=== PATIENT | female | born 1965 | race Caucasian/White ===

== ENCOUNTER 2020-06-12 15:34 | Outpatient (CLI) | payer MEDICARE, SELFPAY ==
[2020-06-12 16:21] LABS: Basophils Absolute Auto 0.1 K/mm3 (0.0-0.1); Basophils Percent Auto 0.8 % (0.2-1.2); Eosinophils Absolute Auto 0.2 K/mm3 (0-0.3); Eosinophils Percent Auto 2.5 % (0-4.4); Hematocrit 40.9 % (37.0-47.0); Hemoglobin 13.7 g/dL (12.0-15.0); Immature Granulocyte Absolute 0.03 K/mm3 (0.00-0.031); Immature Granulocyte Percent A 0.4 % (0-0.5); Lymphocytes Absolute Auto 1.95 K/mm3 (0.9-3.2); Lymphocytes Percent Auto 23.6 % (18.3-44.2); Mean Corpuscular HGB Conc 33.5 g/dl (32-36); Mean Corpuscular Hemoglobin 30.4 pg (26-34); Mean Corpuscular Volume 90.7 fl (80-100); Mean Platelet Volume 10.2 fl (7.4-10.4); Monocytes Absolute Auto 0.7 K/mm3 (0.1-0.6); Monocytes Percent Auto 7.9 % (2.6-8.5); Neutrophils Absolute Auto 5.4 K/mm3 (1.3-6.7); Neutrophils Percent Auto 64.8 % (45.5-73.1); Platelet Count Result 301 k/mm3 (150-375); Red Blood Count 4.51 M/mm3 (4.2-5.4); Red Cell Distribution Width 13.1 % (11.5-14.5); White Blood Count 8.3 K/mm3 (4.5-10.0)
[2020-06-12 16:25] LABS: Add Urine Microscopic? YES; Appearance Urine Clear (Clear); Bilirubin Urine Negative (Negative); Blood Urine Negative (Negative); Color Urine Amber (Yellow); Glucose Urine UA Negative (Negative); Ketones Urine Negative (Negative); Leukocyte Esterase Ur Negative LEU/UL (Negative); Nitrate Urine Positive (Negative); Protein Urine Negative (Negative); RBC Urine 0-2 /hpf (0-2); Specific Grav Ur 1.019 (1.001-1.035); Squamous Epithelial Cell Urine Many /hpf (Few); WBC Urine 0-3 /hpf
[2020-06-12 16:34] LABS: Alanine Aminotransferase 20 U/L (4-35); Albumin Level 4.5 g/dL (3.5-5.1); Alkaline Phosphatase 75 U/L (38-126); Aspartate Amino Transferase 22 U/L (14-36); Bilirubin,Total 0.3 mg/dL (0.2-1.3); Blood Urea Nitrogen 18 mg/dL (7-17); Calcium 9.3 mg/dL (8.4-10.2); Carbon Dioxide 24 mmol/L (22-30); Chloride 106 mmol/L (98-107); Estimated Glomerular Filt Rate > 60; Glucose 89 mg/dL (65-105); Lipase 126 U/L (23-300); Potassium 4.2 mmol/L (3.4-5.0); Sodium 139 mmol/L (137-145)
== END 2020-06-12 15:35 | disposition home or self-care (01) ==
PROVIDERS: Anesthesiology; PCP Registered Nurse; Visit Provider Student in an Organized Health Care Education/Training Program
DX: R10.11 Right upper quadrant pain (principal); R10.13 Epigastric pain
CPT/HCPCS: 36415; 80053; 81001; 83690; 85025

== ENCOUNTER → 2020-06-17 14:44 | Outpatient (CLI) | payer MEDICARE, SELFPAY ==
--- NOTE | ~2020-06-17 | MM_ITS ---
EXAMINATION: MM screening [facility] BI w roderick HISTORY: Screening TECHNIQUE: Craniocaudal and mediolateral oblique 3-D tomosynthesis images were obtained and synthetic 2-D images were generated. CAD analysis was submitted and interpreted. COMPARISON: Comparison to multiple prior studies sequentially, with oldest reviewed study dated 05/15. BREAST PARENCHYMAL COMPOSITION: There are scattered areas of fibroglandular density. FINDINGS: There is no evidence of suspicious mass, calcification, or architectural distortion to sugg est malignancy in either breast. There has been no suspicious interval change. IMPRESSION: 1. No mammographic evidence of malignancy. 2. Recommend routine screening mammography in one year. BI-RADS Category 2: Benign finding(s). Reviewed, dictated and finalized at location A.
== END ==
PROVIDERS: Visit Provider Registered Nurse
DX: Z12.31 Encounter for screening mammogram for malignant neoplasm of breast (principal)
CPT/HCPCS: 77063; 77067

== ENCOUNTER 2020-06-24 07:12 | Outpatient (CLI) | payer MEDICARE, SELFPAY ==
--- NOTE | ~2020-06-24 | US_ITS ---
EXAMINATION: US abdomen complete DATE: 06/24/2020 08:20 INDICATION: Abdominal pain TECHNIQUE: Multiple grayscale and Doppler ultrasound images of the abdomen were obtained. COMPARISON: None available FINDINGS: Bowel gas obscures visualization of the pancreas. The visualized portions of the pancreas a re unremarkable. The liver is normal with normal echogenicity and echotexture. No surface nodularity. Normal hepatopetal flow in the main portal vein. The gallbladder is normal with no abnormal wall thi ckening, pericholecystic fluid or stones. The normal common bile duct measures 3 mm. There was no son ographic Fiore sign. The visualized portions of the aorta and inferior vena cava are normal. The right kidney measures 9.0 x 3.9 x 4.7 cm. The left kidney measures 10.6 x 4.9 x 5.6 cm. The kidne ys demonstrate normal parenchymal echogenicity. There is no hydronephrosis. The spleen is normal in a ppearance and measures 10.2 cm. IMPRESSION: 1. No sonographic correlate for the patient's symptoms. Reviewed, dictated and finalized at location B.
== END 2020-06-24 07:13 | disposition home or self-care (01) ==
PROVIDERS: PCP Student in an Organized Health Care Education/Training Program; Visit Provider Student in an Organized Health Care Education/Training Program
DX: R10.11 Right upper quadrant pain (principal); R10.13 Epigastric pain
CPT/HCPCS: 76700

== ENCOUNTER 2020-10-09 15:01 | Outpatient (CLI) | payer MEDICARE, SELFPAY ==
--- NOTE | ~2020-10-09 | CT_ITS ---
EXAMINATION: CT abdomen pelvis wo con DATE: 10/09/2020 15:32 INDICATION: Right flank pain. Urinary frequency. TECHNIQUE: Computed tomography (CT) of the abdomen and pelvis was performed without intravenous contr ast. Automated exposure control and iterative reconstruction technique were employed. The dose-length product was 357.28 mGy-cm. COMPARISON: 06/12/2014 FINDINGS: Lung bases are clear. Heart size is normal. No pericardial or pleural effusion. Liver, gallbladder, s pleen, pancreas and bilateral adrenal glands are normal. Kidneys and ureters are normal with no uroli thiasis, hydroureteronephrosis or perinephric/ureteral stranding. Bladder, uterus and bilateral adnex a are normal. Bowels including the appendix are normal. No free intraperitoneal gas or fluid. No path ologically enlarged abdominal or pelvic lymphadenopathy. Tiny fat-containing umbilical hernia. L5-S1 anterior spinal fusion with interbody bone graft cages and anterior fixation device. IMPRESSION: 1. No urolithiasis or acute intra-abdominal/pelvic process. Reviewed, dictated and finalized at location . N CARPENTER
== END 2020-10-09 15:02 | disposition home or self-care (01) ==
LOC: ANHIMG 15:10
PROVIDERS: PCP Student in an Organized Health Care Education/Training Program; Visit Provider Registered Nurse
DX: R10.9 Unspecified abdominal pain (principal); Z87.442 Personal history of urinary calculi; R35.0 Frequency of micturition
CPT/HCPCS: 74176

== ENCOUNTER 2020-10-21 07:28 | Outpatient (CLI) | payer MEDICARE, SELFPAY ==
[2020-10-21 08:07] LABS: Basophils Absolute Auto 0.1 K/mm3 (0.0-0.1); Basophils Percent Auto 0.8 % (0.2-1.2); Eosinophils Absolute Auto 0.2 K/mm3 (0-0.3); Eosinophils Percent Auto 3.5 % (0-4.4); Hematocrit 37.4 % (37.0-47.0); Hemoglobin 12.7 g/dL (12.0-15.0); Immature Granulocyte Absolute 0.02 K/mm3 (0.00-0.031); Immature Granulocyte Percent A 0.3 % (0-0.5); Lymphocytes Absolute Auto 1.89 K/mm3 (0.9-3.2); Lymphocytes Percent Auto 31.9 % (18.3-44.2); Mean Corpuscular Hemoglobin 29.4 pg (26-34); Mean Corpuscular Volume 86.6 fl (80-100); Mean Platelet Volume 9.8 fl (7.4-10.4); Monocytes Absolute Auto 0.6 K/mm3 (0.1-0.6); Monocytes Percent Auto 9.3 % (2.6-8.5); Neutrophils Absolute Auto 3.2 K/mm3 (1.3-6.7); Neutrophils Percent Auto 54.2 % (45.5-73.1); Platelet Count Result 264 k/mm3 (150-375); Red Blood Count 4.32 M/mm3 (4.2-5.4); Red Cell Distribution Width 13.4 % (11.5-14.5); White Blood Count 5.9 K/mm3 (4.5-10.0)
[2020-10-21 08:20] LABS: Alanine Aminotransferase 19 U/L (4-35); Albumin Level 4.6 g/dL (3.5-5.1); Alkaline Phosphatase 72 U/L (38-126); Anion Gap 9 mmol/L (8-16); Aspartate Amino Transferase 23 U/L (14-36); Bilirubin,Total 0.4 mg/dL (0.2-1.3); Blood Urea Nitrogen 21 mg/dL (7-17); Calcium 9.4 mg/dL (8.4-10.2); Carbon Dioxide 27 mmol/L (22-30); Chloride 106 mmol/L (98-107); Cholesterol 175 mg/dL (0-200); Estimated Glomerular Filt Rate > 60; Glucose 92 mg/dL (65-105); HDL Direct 44 mg/dL; Potassium 3.9 mmol/L (3.4-5.0); Sodium 142 mmol/L (137-145); Triglycerides 221 mg/dL (<150); Uric Acid 3.6 mg/dL (2.5-7.5)
[2020-10-21 08:25] LABS: Add Urine Microscopic? YES; Appearance Urine Cloudy (Clear); Bilirubin Urine Negative (Negative); Blood Urine Negative (Negative); Color Urine Yellow (Yellow); Glucose Urine UA Negative (Negative); Ketones Urine Negative (Negative); Leukocyte Esterase Ur Negative LEU/UL (Negative); Mucus Urine Few /lpf; Nitrate Urine Negative (Negative); Protein Urine Negative (Negative); RBC Urine 0-2 /hpf (0-2); Specific Grav Ur 1.017 (1.001-1.035); Squamous Epithelial Cell Urine Many /hpf (Few); Urobilinogen Urine Negative mg/dL (<2.0); WBC Urine 0-3 /hpf
[2020-10-21 08:31] LABS: LDL Cholesterol Direct 102 mg/dL
[2020-10-21 08:56] LABS: Vitamin D 25 Hydroxy 58.7 ng/mL
== END 2020-10-21 07:29 | disposition home or self-care (01) ==
PROVIDERS: PCP Registered Nurse; Visit Provider Registered Nurse
DX: E78.2 Mixed hyperlipidemia (principal); Z68.30 Body mass index [BMI] 30.0-30.9, adult; F33.42 Major depressive disorder, recurrent, in full remission; E55.9 Vitamin D deficiency, unspecified
CPT/HCPCS: 36415; 80053; 80061; 81001; 82306; 84443; 84550; 85025

== ENCOUNTER 2021-03-30 18:16 | Emergency (ER) | payer MEDICARE, SELFPAY ==
--- NOTE | 2021-03-30 18:22 | ED.SKABFB ---
HPI - Skin/Abscess/Foreign Bdy General Chief complaint: Skin/Abscess/Foreign Body Stated complaint: spider bite Time Seen by Provider: 03/30/21 18:32 Source: patient and RN notes reviewed Mode of arrival: ambulatory Limitations: no limitations History of Present Illness HPI narrative: 55-year-old female presents with concern for an abscess. Reports an area of redness, tenderness under her right arm for which she saw her primary care doctor. Reports her primary care doctor put her on a course of antibiotics as well as an antibiotic injection. Reports she saw her primary care doctor today who dale a [place] around the abscess and said if the redness exceeded the current area she should be seen at urgent care. Reports the redness continued to spread and she noticed a small amount of drainage. She denies fever, malaise, body aches. MD complaint: abscess/boil Related Data Home Medications Medication Instructions Recorded Confirmed atorvastatin 10 mg PO DAILY 03/30/21 03/30/21 bupropion HCl 150 mg PO BID 03/30/21 03/30/21 estradiol 1 mg PO DAILY 03/30/21 03/30/21 phentermine 37.5 mg PO DAILY 03/30/21 03/30/21 progesterone micronized 100 mg PO DAILY 03/30/21 03/30/21 sulfamethoxazole-trimethoprim 1 tablet PO Q12H 03/30/21 03/30/21 Allergies Allergy/AdvReac Type Severity Reaction Status Date / Time hydrocodone Allergy Unknown ITCHING Verified 03/30/21 18:52 Review of Systems Review of Systems: Narrative: CONSTITUTIONAL: Denies malaise, chills, sweats, or fever. SKIN: Reports an abscess under her right arm MUSCULOSKELETAL: Denies musculoskeletal pain NEUROLOGIC: Denies numbness, weakness All systems reviewed & are unremarkable except as noted in HPI and below PMFSH Past Medical History Medical History (Updated 03/30/21 @ 18:44 by Margie Baxter NP) Chronic neck pain GERD (gastroesophageal reflux disease) Surgical History Surgical History (System 05/22/20 @ 12:35 by Yuly Yoo) History of orthopedic surgery Family History Family History (System 05/22/20 @ 12:35 by Yuly Yoo) Sibling Family history of diabetes mellitus in first degree relative Mother Family history of heart disease in male family member before age 55 Other Family history of malignant neoplasm Social History Social History (System 06/26/20 @ 12:35 by Yuly Yoo) Smoking status: Current every day smoker Alcohol intake: current Comments At time of signature, agree with nursing past medical, surgical, social and family history. There is no relevant family history pertinent to the presenting complaint Exam Narrative: Exam Narrative: GENERAL: Well-appearing, well-nourished, and in no acute distress. HEAD: Normocephalic, atraumatic. EYES: PERRLA, conjunctivae clear, and EOMI. ENT: Mucous membranes moist. Oropharynx without edema, erythema or lesions. NECK: Supple. No lymphadenopathy CHEST: Clear to auscultation. No respiratory distress HEART: Regular rate and rhythm. SKIN: Warm, dry. 8 cm x 6 cm area of erythema, induration, warmth with small amount of tracking medially. Central fluctuation noted with small amount of purulent drainage. NEURO: Alert and oriented x3. PSYCH: Normal mood and affect Course Course Emergency Course: Patient is aware of diagnosis, understands and agrees to treatment plan. Anticipatory guidance given. Patient agrees to follow-up as directed and is aware of reasons to seek care at the emergency department. Portions of this record may have been created with voice recognition software Vital Signs Vital signs: Vital Signs Temperature 98.7 F 03/30/21 18:28 Pulse Rate 96 03/30/21 18:28 Respiratory Rate 16 03/30/21 18:28 Blood Pressure 133/60 03/30/21 18:28 Pulse Oximetry 100 03/30/21 18:28 Temperature 98.7 F 03/30/21 18:28 Pulse Rate 96 03/30/21 18:28 Respiratory Rate 16 03/30/21 18:28 Blood Pressure 133/60 03/30/21 18:28 Pulse Oximetry 10
[2021-03-30 18:28] VITALS: BP 133/60; PULSE 96; RESP 16; TEMP 37.1; O2SAT 100
== END 2021-03-30 19:06 | disposition home or self-care (01) ==
PROVIDERS: Emergency Provider Nurse Practitioner; PCP Registered Nurse
DX: L02.413 Cutaneous abscess of right upper limb (principal); K21.9 Gastro-esophageal reflux disease without esophagitis; F17.200 Nicotine dependence, unspecified, uncomplicated
CPT/HCPCS: 10060; 99213; G0463

== ENCOUNTER → 2021-06-24 07:20 | Outpatient (CLI) | payer MEDICARE, SELFPAY ==
--- NOTE | ~2021-06-24 | MM_ITS ---
EXAMINATION: MM screening [facility] BI w roderick HISTORY: Screening mammogram TECHNIQUE: Craniocaudal and mediolateral oblique 3-D tomosynthesis images were obtained and synthetic 2-D images were generated. CAD analysis was submitted and interpreted. COMPARISON: 06/17/2020, 3 04/20/2019, 12/22/1999 8:15 bilateral digital mammogram examinations BREAST PARENCHYMAL COMPOSITION: There are scattered areas of fibroglandular density. FINDINGS: Asymmetric density is noted in the anterior outer right breast on CC projection. Diagnostic right mammogram and right breast ultrasound examination are recommended, Otherwise there is no evidence of suspicious mass, calcification, or architectural distortion to sugg est malignancy in either breast. There has been no other suspicious interval change. IMPRESSION: 1. Asymmetric density and anterior outer right breast on CC projection 2. Diagnostic right mammogram and right breast ultrasound examination are recommended BI-RADS Category 0: Incomplete: Needs additional imaging evaluation. Reviewed, dictated and finalized at location A. IMPRESSION: 1. Asymmetric density and anterior outer right breast on CC projection 2. Diagnostic right mammogram and right breast ultrasound examination are recom mended BI-RADS Category 0: Incomplete: Needs additional imaging evaluation.
== END ==
PROVIDERS: PCP Registered Nurse; Visit Provider Obstetrics & Gynecology
DX: Z12.31 Encounter for screening mammogram for malignant neoplasm of breast (principal); R92.8 Other abnormal and inconclusive findings on diagnostic imaging of breast
CPT/HCPCS: 77063; 77067

== ENCOUNTER → 2021-07-22 08:54 | Outpatient (CLI) | payer MEDICARE, SELFPAY ==
--- NOTE | ~2021-07-22 | MMUS_ITS ---
EXAMINATION: MM diagnostic [facility] RT w roderick, US breast RT limited HISTORY: Right breast asymmetry on screening mammogram TECHNIQUE: Additional 3-D tomosynthesis images of the right breast were performed and synthetic 2-D i mages were generated. CAD analysis was submitted and interpreted. High resolution limited right breas t ultrasound was performed. COMPARISON: 06/24/2021, 06/17/2020, 02/13/2019, 09/26/2014 BREAST PARENCHYMAL COMPOSITION: There are scattered areas of fibroglandular density. FINDINGS: MAMMOGRAPHIC FINDINGS: There is a return to baseline fibroglandular appearance with spot compression of the breast in th e area questioned on screening mammogram. There is an 8 mm oval, obscured, low density subareolar mas s in the slightly outer breast. ULTRASOUND: There is a 10 mm x 4 mm cyst at the 10:00 location 3 cm from the nipple. A 3 mm hypoechoic mass at th e 10:00 location 7.5 cm from the nipple has a similar appearance to thousand 14 ultrasound comparison . A mass with sonographic features of an intramammary lymph node is seen at the 10:00 location 7 cm f rom the nipple. There is a dilated subareolar ducts at the 10:00 location without identifiable intral uminal mass. IMPRESSION: 1. No mammographic or sonographic evidence of malignancy. 2. Recommend routine screening mammography in one year. BI-RADS Category 2: Benign finding(s). Reviewed, dictated and finalized at location A. IMPRESSION: 1. No mammographic or sonographic evidence of malignancy. 2. Recommend routine screening mammography in one year. BI-RADS Category 2: Benign finding(s).
== END ==
PROVIDERS: PCP Registered Nurse; Visit Provider Obstetrics & Gynecology
DX: R92.8 Other abnormal and inconclusive findings on diagnostic imaging of breast (principal)
CPT/HCPCS: 76642; 77061; 77065; G0279

== ENCOUNTER 2022-02-04 07:38 | Outpatient (CLI) | payer MEDICARE, SELFPAY ==
--- NOTE | ~2022-02-04 | US_ITS ---
EXAMINATION: US right upper quadrant EXAM DATE: 02/04/2022 08:13 INDICATION: Abdominal pain TECHNIQUE: Multiple grayscale and Doppler images of the abdomen right upper quadrant were obtained (b y a technologist who performed the scan) and subsequently reviewed. Comparison is made to prior exami nation from 06/24/2020. FINDINGS: The pancreatic head and body are normal in appearance. The pancreatic tail is not visualized. The l iver has normal echogenicity and contour. There are no focal liver lesions identified. There is no evidence of intrahepatic biliary duct dilation. Portal venous flow was seen in the hepatopedal, nor mal direction and has normal Doppler waveform. No right-sided hydronephrosis. Common bile duct measures 3 mm, which is normal. The gallbladder wall is normal in thickness, with ex pected amount of distention. No sonographic evidence of pericholecystic fluid. There is no cholelit hiases. Technologist performing exam reports patient did not demonstrate sonographic Fiore's sign. Please note that this sign is less reliable in patients who have received pain medication. IMPRESSION: 1. Unremarkable abdominal ultrasound exam. Reviewed, dictated and finalized at location A. CONSULTANT
== END 2022-02-04 07:39 ==
PROVIDERS: PCP Registered Nurse; Visit Provider Nurse Practitioner Family
DX: R10.11 Right upper quadrant pain (principal); R11.2 Nausea with vomiting, unspecified
CPT/HCPCS: 76705

== ENCOUNTER → 2022-07-19 13:49 | Outpatient (CLI) | payer MEDICARE, SELFPAY ==
--- NOTE | ~2022-07-19 | MM_ITS ---
EXAMINATION: MM screening [facility] BI w roderick HISTORY: Screening TECHNIQUE: Craniocaudal and mediolateral oblique 3-D tomosynthesis images were obtained and synthetic 2-D images were generated. CAD analysis was submitted and interpreted. COMPARISON: Comparison to multiple prior studies sequentially, with oldest reviewed study dated 08/29. BREAST PARENCHYMAL COMPOSITION: There are scattered areas of fibroglandular density. FINDINGS: There is no evidence of suspicious mass, calcification, or architectural distortion to sugg est malignancy in either breast. There has been no suspicious interval change. IMPRESSION: 1. No mammographic evidence of malignancy. 2. Recommend routine screening mammography in one year. BI-RADS Category 1: Negative Reviewed, dictated and finalized at location A.
== END ==
PROVIDERS: PCP Registered Nurse; Visit Provider Obstetrics & Gynecology
DX: Z12.31 Encounter for screening mammogram for malignant neoplasm of breast (principal)
CPT/HCPCS: 77063; 77067

== ENCOUNTER → 2023-08-21 12:16 | Outpatient (CLI) | payer MEDICARE, SELFPAY ==
--- NOTE | ~2023-08-21 | MM_ITS ---
EXAMINATION: MM screening [facility] BI w roderick HISTORY: Screening mammogram TECHNIQUE: Craniocaudal and mediolateral oblique 3-D tomosynthesis images were obtained and synthetic 2-D images were generated. CAD analysis was submitted and interpreted. COMPARISON: 07/19/2022, 07/22/2021 diagnostic right mammogram and limited right breast ultrasound exami nation 06/04/2021 bilateral screening mammogram BREAST PARENCHYMAL COMPOSITION: There are scattered areas of fibroglandular density. FINDINGS: Benign-appearing posterior upper outer quadrant right intramammary lymph node. Occasional b enign calcifications. There is no evidence of suspicious mass, calcification, or architectural distor tion to suggest malignancy in either breast. There has been no suspicious interval change. IMPRESSION: 1. No mammographic evidence of malignancy. 2. Recommend routine screening mammography in one year. BI-RADS Category 2: Benign finding(s). Reviewed, dictated and finalized at location A.
== END ==
PROVIDERS: PCP Obstetrics & Gynecology; Visit Provider Obstetrics & Gynecology
DX: Z12.31 Encounter for screening mammogram for malignant neoplasm of breast (principal)
CPT/HCPCS: 77063; 77067

== ENCOUNTER 2023-09-22 07:13 | Outpatient (CLI) | payer MEDICARE, SELFPAY ==
[2023-09-22 07:36] LABS: Basophils Percent Auto 0.2 % (0.2-1.2); Eosinophils Percent Auto 0.1 % (0-4.4); Hematocrit 41.5 % (37.0-47.0); Hemoglobin 13.4 g/dL (12.0-15.0); Immature Granulocyte Absolute 0.13 K/mm3 (0.00-0.031); Immature Granulocyte Percent A 0.8 % (0-0.5); Lymphocytes Absolute Auto 2.39 K/mm3 (0.9-3.2); Lymphocytes Percent Auto 14.9 % (18.3-44.2); Mean Corpuscular HGB Conc 32.3 g/dl (32-36); Mean Corpuscular Hemoglobin 28.5 pg (26-34); Mean Corpuscular Volume 88.1 fl (80-100); Mean Platelet Volume 9.9 fl (7.4-10.4); Monocytes Absolute Auto 0.8 K/mm3 (0.1-0.6); Monocytes Percent Auto 4.9 % (2.6-8.5); Neutrophils Absolute Auto 12.7 K/mm3 (1.3-6.7); Neutrophils Percent Auto 79.1 % (45.5-73.1); Platelet Count Result 359 k/mm3 (150-375); Red Blood Count 4.71 M/mm3 (4.2-5.4); Red Cell Distribution Width 13.7 % (11.5-14.5)
[2023-09-22 07:44] LABS: Alanine Aminotransferase 23 U/L (6-35); Albumin Level 4.7 g/dL (3.5-5.1); Alkaline Phosphatase 73 U/L (38-126); Anion Gap 7 mmol/L (8-16); Aspartate Amino Transferase 21 U/L (14-36); Bilirubin,Total 0.4 mg/dL (0.2-1.3); Blood Urea Nitrogen 20 mg/dL (7-17); Calcium 9.4 mg/dL (8.4-10.2); Carbon Dioxide 26 mmol/L (22-30); Chloride 107 mmol/L (98-107); Cholesterol 230 mg/dL (0-200); Estimated Glomerular Filt Rate > 60; Glucose 95 mg/dL (65-110); HDL Direct 53 mg/dL; Potassium 4.1 mmol/L (3.4-5.0); Sodium 140 mmol/L (137-145); Triglycerides 273 mg/dL (<150)
[2023-09-22 07:55] LABS: LDL Cholesterol Direct 123 mg/dL
[2023-09-22 09:27] LABS: Vitamin D 25 Hydroxy 71.4 ng/mL
[2023-09-22 10:10] LABS: Hemoglobin A1C 5.2 % (<5.7)
[2023-09-22 11:07] LABS: Total Triiodothyronine (T3) 1.03 NG/ML (0.97-1.69)
[2023-09-25 15:16] LABS: Insulin Level Total 21.5 uIU/mL (<=18.4)
== END 2023-09-22 07:14 | disposition home or self-care (01) ==
LOC: ANHLAB 07:15
PROVIDERS: PCP Registered Nurse; Visit Provider Family Medicine
DX: E66.09 Other obesity due to excess calories (principal); Z68.31 Body mass index [BMI] 31.0-31.9, adult; R79.9 Abnormal finding of blood chemistry, unspecified; E78.2 Mixed hyperlipidemia; E55.9 Vitamin D deficiency, unspecified
CPT/HCPCS: 36415; 80053; 80061; 82306; 83036; 83525; 84439; 84443; 84480; 85025

== ENCOUNTER 2024-08-23 09:50 | Outpatient (CLI) | payer MEDICARE, SELFPAY ==
--- NOTE | ~2024-08-23 | MM_ITS ---
EXAMINATION: MM screening [facility] w roderick HISTORY: Screening TECHNIQUE: Craniocaudal and mediolateral oblique 3-D tomosynthesis images were obtained and synthetic 2-D images were generated. CAD analysis was submitted and interpreted. COMPARISON: Comparison to multiple prior studies sequentially, with oldest reviewed study dated 02/13. BREAST PARENCHYMAL COMPOSITION: Not dense: There are scattered areas of fibroglandular density. FINDINGS: There are developing asymmetries in the upper outer quadrant of the left breast. The right breast is stable without evidence for malignancy. IMPRESSION: 1. Developing left breast asymmetries. 2. Additional mammographic views and possible breast ultrasound are recommended. BI-RADS Category 0: Incomplete: Needs additional imaging evaluation. Reviewed, dictated and finalized at location B. IMPRESSION: 1. Developing left breast asymmetries. 2. Additional mammographic views and possible breast ultrasound are recommended . BI-RADS Category 0: Incomplete: Needs additional imaging evaluation.
== END 2024-08-23 09:51 | disposition home or self-care (01) ==
LOC: MICIMG 09:51
PROVIDERS: PCP Registered Nurse; Visit Provider Obstetrics & Gynecology
DX: Z12.31 Encounter for screening mammogram for malignant neoplasm of breast (principal); R92.8 Other abnormal and inconclusive findings on diagnostic imaging of breast
CPT/HCPCS: 77063; 77067

== ENCOUNTER 2024-09-17 08:49 | Outpatient (CLI) | payer MEDICARE, SELFPAY ==
--- NOTE | ~2024-09-17 | MMUS_ITS ---
EXAMINATION: MM diagnostic [facility] LT w roderick, US breast LT limited HISTORY: Follow-up left breast asymmetry TECHNIQUE: Additional 3-D tomosynthesis images of the left breast were performed and synthetic 2-D im ages were generated. CAD analysis was submitted and interpreted. High resolution Limited left breast ultrasound was performed. COMPARISON: Comparison to multiple prior studies sequentially, with oldest reviewed study dated 06/17. BREAST PARENCHYMAL COMPOSITION: Not dense: There are scattered areas of fibroglandular density. FINDINGS: MAMMOGRAPHIC FINDINGS: Left breast asymmetries are less apparent with spot compression views, likely superimposed fibrogland ular tissue. No discrete mass identified. There are benign left breast calcifications. ULTRASOUND: Limited left breast ultrasound: At 2:00, 8 cm from the nipple there is an oval hypoechoic 1 cm mass w ith echogenic hilum, likely benign intramammary lymph node. No internal vascularity or significant po sterior features. IMPRESSION: 1. Probable benign 1 cm intramammary lymph node of the left breast at 2:00, 8 cm from the nipple. 2. Recommend 6 month follow-up Limited left breast ultrasound BI-RADS category 3, probably benign findings. Reviewed, dictated and finalized at location B. IMPRESSION: 1. Probable benign 1 cm intramammary lymph node of the left breast at 2:00, 8 c m from the nipple. 2. Recommend 6 month follow-up Limited left breast ultrasound BI-RADS category 3, probably benign findings.
== END 2024-09-17 08:50 | disposition home or self-care (01) ==
PROVIDERS: PCP Registered Nurse; Visit Provider Obstetrics & Gynecology
DX: R92.2 Inconclusive mammogram (principal); R92.8 Other abnormal and inconclusive findings on diagnostic imaging of breast
CPT/HCPCS: 76642; 77061; 77065; G0279

== ENCOUNTER 2025-06-13 08:13 | Outpatient (CLI) | payer MEDICARE, SELFPAY ==
--- OUTSIDE RECORDS SUMMARY | 2025-06-13 08:22 | XMS_ITS | Patient Health Record ---
Author Organization [facility] Address [address] [place] [address] [address] [place] [address] Care Team Providers Care Manager Radio Name Role Phone Oleg Corona Unavailable [phone] Rosie Bray Unavailable Unavailable Allergies Allergen (clinical drug ingredient) Drug/Non Drug Allergy documented on EMR Reaction Allergy Type Onset Date Status hydrocodone hydrocodone (uncoded) Unknown Allergy Active Reason For Referral No Information Medications Medication SIG (Take, Route, Fr equency, Duration) Notes Start Date End Date Status PriLOSEC OTC 20 MG 1 tablet Orally Once a day; Duration: 30 day(s) Active Toprol XL 25 MG 1 tablet Orally Once a day; Duration: 30 day(s) Active Magnesium 200 MG 2 tablets with a lizette l Orally Once a day; Duration: 30 day(s) Active Zanaflex 4 MG 1 tablet as needed O rally Three times a day; Duration: 14 days 02/26/2020 A ctive Progesterone 100 MG 1 vaginal _insert Va ginal Twice a day; Duration: 30 day(s) Activ e Maxalt 10 MG 1 tablet as needed o ne time Orally Once a day; Duration: 1 day(s) Active Estrace 1 MG 1 tablet Orally Ashwin y for Three Weeks, 1 Week off; Duration: 30 day(s) Active Wellbutrin SR 150 MG 1 tablet in the mor lata Orally Once a day; Duration: 30 day(s) Active Lipitor 20 MG 1 tablet Orally Once a day; Duration: 30 day(s) Active Elavil 100mg 1 pill PO daily A ctive Problems Problem Type SNOMED Code ICD Code Onset Dates Problem Status W/U Status Risk Notes Problem Refractory migraine with aura (282593517) Migraine with aura, intractable, without status migrainosus (G43.119) Active confirmed Problem Meralgia paresthetica (60327380) Meralgia paresthetica, right lower limb (G57.11) Active confirmed Problem Cervical spondylosis without myelopathy (139624857) Spondylosis without myelopathy or radiculopathy, cervical region (M47.812) Active confirmed Plan Of Treatment Pending Test Test Name Order Date MRI : Cervical Spine w/o Contrast 2018 MRI : Cervical Spine w/o Contrast 2019 CT Scan : Cervical spine w/o contrast Insurance Providers Payer Name Payer Address Payer Phone Subscriber Number Group Number Insured Name Patient Relationship to Insured Coverage Start Date Coverage End Date [employer] [address] [address] [place] [address] [phone] [id number] Stacia Christy Self - patient is the insured Medical (General) History Medical History History ICD Code carpal tunnel (L) wrist HYTN Renal disorder stomach ulcers Surgical History Surgery Date(Month/Year)
--- OUTSIDE RECORDS SUMMARY | 2025-06-13 08:22 | XMS_ITS | Clinical Summary ---
Author Organization [facility] Address [address] [place] [address] Care Team Providers Care Cushion Filler Name Role Phone Yoli Melendez DRAWING OPERATOR-ENVIRONMENTAL SERVICES FLOOR TECH Primary Care Provider Jason Rodriguez MD Unavailable [phone] Source Comments [facility],non-owned Affiliates and Associated Physician Practices is amultiple site organization consisting of ambulatory clinics and hospital sitesin [place], [place], [place] and [place]. This disclosure is being madepursuant to the Care Everywhere program and may not contain all information available regarding this patient. Last updated 18.[facility] Allergies Active Allergy Reactions Criticality Noted Date Comments Hydrocodone Itching Low 07/24/2017 Shellfish Allergy Itching Low 02/06/2018 Red bumps, Red bumps Medications * Be aware that medications may not be up to date on this document. Alwaysverify current medications with the patient. Multiple Vitamins-Minera ls (ALIVE WOMENS ENERGY PO) Take by mouth once daily Active estradiol (ESTRACE) 1 MG tablet Take 1 (one) tablet by mouth once daily Active magnesium 250 MG tablet Take 1 tablet by mouth once daily 06/18/2019 Active atorvastatin (LIPITOR) 10 MG tablet Take one tablet daily 01/18/2022 Active lisinopril (PRINIVIL; ZESTRIL) 10 MG tablet Take one tablet once daily 02/18/2022 Active omeprazole (PRILOSEC) 40 MG capsule TAKE 1 CAPSULE(40 MG) BY MOUTH DAILY 03/10/2022 Active ibuprofen (Motrin) 200 MG tablet Take by mouth every 6 hours as needed for Pain Active SUMAtriptan (Imitrex) 100 MG tablet TAKE 1 TABLET BY MOUTH DAILY NEEDED. MAY REPEAT 1 TIME FOR MIGRAINE. NO MORE THAN 2 DOSES IN 24 HOURS 9 tablet 02/22/2023 Active Progesterone 100 MG capsule Take 1 (one) capsule by mouth once daily 03/17/2023 Active Active Problems Problem Noted Date Diagnosed Date Carpal tunnel syndrome of left wrist 06/18/2018 H/O arthroplasty 06/18/2018 Ulcer of the stomach and intestine Renal disorder Overview (07/31/2019): urban stones but passed 1 on own 2007 Migraine Hyperlipidemia HTN (hypertension) Chronic pain Overview (07/31/2019): back and right leg left shoulder neck Cataract Arthritis Cervical spondylosis without myelopathy Resolved Problems Problem Noted Date Diagnosed Date Resolved Date Pseudarthrosis following spinal fusion 10/11/2018 01/16/2020 Surgery follow-up examination 06/18/2018 06/18/2018 Radiculopathy of cervical region 02/16/2018 03/31/2018 Family History Medical History Relation Name Comments Other Brother Diabetes High Cholesterol Father CAD (Coronary Artery Disease) Mother Heart attack/failure Cancer - Other Mother lung Relation Name Status Comments Brother Alive Father Alive Mother Alive Social History Tobacco Use Types Packs/Day Years Used Date Smoking Tobacco: Former Cigarettes Q uit: 11/27/2017 Smokeless Tobacco: Never Tobacco Cessation:Counseling Given: No Alcohol Use Standard Drinks/Week Comments Yes 0 (1 standard drink = 0.6 oz pur e alcohol) 6 drinks a week Comments No Sex and Gender Information Value Date Recorded Sex Assigned at Not on file Legal Sex Female 5:18 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 Gender Identity Not on file Sexual Orientation Not on file Occupation Industry Job Start Date Job End Date disabled Not on file Not on file Not on file Last Filed Vital Signs Vital Sign Reading Time Taken Comments Blood Pressure 139/85 01/09/2023 1:01 PM FRAME SAMPLE AND 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 Pulse 75 01/09/2023 1:01 PM FRAME SAMPLE AND 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 Temperature 36.5 C (97.7 F) 01/09/2023 11:44 AM FRAME SAMPLE AND 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 Respiratory Rate 16 01/09/2023 1:01 PM FRAME SAMPLE AND 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 Oxygen Saturation 98% 01/09/2023 1:01 PM FRAME SAMPLE AND 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 Inhaled Oxygen Concentration - - Weight 86.2 kg (190 lb) 01/01/2021 8:52 AM FRAME SAMPLE AND 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 Height 170.2 cm (5' 7) 01/01/2021 8:52 AM FRAME SAMPLE AND 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 Body Mass Index 29.76 01/01/2021 8:52 AM FRAME SAMPLE AND 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 Plan of Treatment Health Maintenance Due Date Last Done Comments COLOGUARD (AGES 45-75) - COL ON CA SCREENING 1965 CT COLONOGRAPHY - COLON CA SCREENING 1965 FIT - COLON CA SCREENING 1965 FLEX SIG - COLON CA SCREENING 1965 MAMMOGRAM 1965 HIV SCREENING 1980 HEPATITIS C SCREENING 07/29/1983 DTAP/TDAP/TD VACCINES (1 - Tdap) 1984 HEPATITIS B VACCINE (1 of 3 - 19+ 3-dose series) 1984 PNEUMOCOCCAL VACCINE 50+ (1 of 1 - PCV) 2015 ZOSTER VACCINE (1 of 2) 2015 COVID-19 VACCINE (1 - 2023-2 5 season) 2024 DEPRESSION SCREENING 11/27/2024 MEDICARE AWV CALENDAR YEAR 2024 PAP SMEAR 03/07/2025 03/07/2022, 03/07/2022 INFLUENZA VACCINE (#1) 2025 COLON MONITORING 04/05/2033 04/05/2023 COLONOSCOPY - COLON CA SCREENING 04/05/2033 04/05/2023 Colorectal Cancer Screening 04/05/2033 HIB VACCINE Aged Out No longer eligi ble based on patient's age to complete this topic HPV VACCINE Aged Out No longer eligi ble based on patient's age to complete this topic MENINGOCOCCAL (Group B) VACCINE SHARED DECISION-MAKING Aged Out No longer eligible based on patient's age to complete this topic MENINGOCOCCAL GROUPS A/C/Y/W VACCINE Aged Out No longer eligible b ased on patient's age to complete this topic Insurance MEDICARE MEDICAID - OUT OF STATE [facility] MANAGED MEDICARE ADV [facility] MANAGED MEDICARE ADV Care Teams Cushion Filler Relationship Specialty Start Date End Date Yoli Melendez APRN-JESIKA [facility] [place] [address] PCP - General Nurse Practitioner 06/18/19 Jason Rodriguez MD [address] [place] [address] Physician Neurology 06/01/23
--- OUTSIDE RECORDS SUMMARY | 2025-06-13 08:22 | XMS_ITS ---
Author Organization [facility] [place] ([address]) Address [address] [place] [address] Care Team Providers Care Snowmaker Name Role Phone Yoli Melendez Primary Care Provider UnavailDr. Jason Parker Unavailable [phone] [employer], Provider Unavailable Unavailab le Allergies Allergen (clinical drug ingredient) Drug/Non Drug Allergy documented on EMR Reaction Allergy Type Onset Date Status hydrocodone HYDROcodone Unknown Drug Allergy Act rey REASON FOR VISIT Multum To Medispan Conversion Encounter Medications Medication SIG (Take, Route, Frequency, Duration) Notes Start Date End Date Status Amoxicillin 500 MG 1 cap(s) orally 3 times a day; Duration: 10 day(s) Not-Taking Magnesium ADDWITHOUTSIG *Please review and pick correct strength-formulat ion from Medispan options. If intended option is not shown, discontinue and re-order from Quick Search* 06/18/2019 Active Progesterone 100 MG 2 cap(s) orally once a day (at bedtime); Duration: 12 day(s) Active Meloxicam 15 MG 1 tab(s) orally once a day; Duration: 30 day(s) Active Atorvastatin Calcium 10 MG 1 tab(s) orally once a day; Duration: 30 day(s) Active Estradiol 1 MG 1 tab(s) orally once a day; Duration: 30 day(s) Unknown SUMAtriptan Succinate 100 MG 1 tab(s) orally once; Duration: 30 days Active Encounters Encounter Location Date Provider Diagnosis [address] [address] 05/11/2024 Provider Nilo Chronic migraine without aura, not intractable, without status migrainosus G43.709 Assessments Encounter Date Diagnosis (ICD Code) Assessment Notes Treatment Notes Treatment Clinical Notes Section Notes 05/11/2024 Chronic migraine without aura, not intractable, without status migrainosus (ICD-10 - G43.709) Plan Of Treatment Medication Medication Name Sig Start Date Stop Date Notes SUMAtriptan Succinate 100 MG 1 tab(s) or ally once; Duration: 30 days Progress Notes * Jaime CHRISTYOB:1965 (59 yo F)Acc No.[id number]:05/11/2024 Patient: Stacia MILLARD Provider: Andra Simpson :1965 A ge:58 Y S ex:Female Date:05/11/2024 Address:[address] [place], [place] [id number] Pcp:Yoli Melendez Subjective: * Chief Complaints: * 1 . Multum To Medispan Conversion Encounter. * Medical History: * Medications: T aking Atorvastatin Calcium 10 MG Tablet 1 tab(s) orally once a day , Taking Meloxicam 15 MG Tablet 1 tab(s) orally once a day , Taking Progesterone 100 MG Capsule 2 cap(s) orally once a day (at bedtime) , Taking Magnesium ADDWITHOUTSIG , Notes to Pharmacist: *Please review and pick correct [facility]. If intended option is not shown, discontinue and re-order from Quick Search*, Not-Taking/PRN Amoxicillin 500 MG Capsule 1 cap(s) orally 3 times a day , Unknown Estradiol 1 MG Tablet 1 tab(s) orally once a day * Allergies: H YDROcodone. Objective: * Vitals: Assessment: * Assessment: 1. C hronic migraine without aura, not intractable, without status migrainosus - G43.709 (Primary) Plan: * Treatment: * Billing Information: * Visit Code: * Procedure Codes: * Electronic signature of Brayan Corcoran on 06/13/2025 at 08:21 AM CDT Sign off status: Pending * Provider: Andra Simpson Date: 0 05/11/2024 Generated for Pricila giron/Dang/Debbieitting on: 0 06/13/2025 08:21 AM CDT
--- OUTSIDE RECORDS SUMMARY | 2025-06-13 08:22 | XMS_ITS | Data Portability ---
Author Organization [facility] [place] Address [address] [place] [address] Care Team Providers Care Hood Fitter Name Role Phone SALVADOR OBRIEN Primary Care Provider [phone] Assessment Encounter Date Assessment Date Assessment LastModified by Organization Details LastModified Time 12/31/2020 12/31/2020 Annual gynecological exam performed. Patient will come back in a year unless there are new symptoms. Not available 12/31/2020 16:55:02 03/07/2022 03/07/2022 Annual gynecological exam performed. Patient will come back in a year unless there are new symptoms. Not available 03/07/2022 10:28:04 06/01/2023 06/01/2023 Annual gynecological exam performed. Patient will come back in a year unless there are new symptoms. Not available 06/01/2023 10:21:59 06/03/2024 06/03/2024 Annual gynecological exam performed. Patient will come back in a year unless there are new symptoms. [email or web address] Not available 06/03/2024 09:35:29 Plan of Treatment Reminders Order Date Submit Date Provider Last Modified By Organization Details Last Modified Time Details Appointments [facility]- EST 025 10:45AM Joann FINK MD Not available Not available Not available Lab None record ed. Referral None record ed. Procedures None record ed. Surgeries None record ed. Imaging None record ed. Medication Orders None record ed. Patient TargetsNo targets recorded. Patient InstructionsNo instructions recorded. Reason for Referral None Reported. Results Created Date Observation Date Name Description Value Unit Range Abnormal Flag Note LastModifiedBy Organization Detail LastModifiedTime 03/07/20 22 03/07/2022 IMAGE GUIDE D PAP AND HPV REGAR DLESS image guided Pap, HPV regardless of Pap result SEE RESULT S BELOW CASE REPOR T: Cytol ogy Gynec ologi luis Repor t Case: [id number] Autho barbara griffin Provi ernesto: Kim Fink MD Colle cted: 03/07 1100 Order ing Locat ion: [place] Patho logy Recei kelly: 03/08 0203 First Scree n: Isabel obrien, [place] , [place] Rescr een: Latosha Root ndrenrico Speci men: Scree lata Pap - Image d, Cervi x STATE MENT OF ADEQU ACY: Satis facto ry for evalu ation Trans forma tion zone compo nent absen t. The absen ce of an endoc ervic al compo nent was confi rmed by an addit ional consuelo ner. FINAL DIAGN OSIS: Negat ery for Intra epith elial Valencia calvo or Adali mccall (NIL) . Elect kenya garcia bea d by Latosha Root on 2021 at 1:48 PM ----- ----- ----- ----- ----- ----- ----- ----- ----- ----- ----- ----- ----- ----- ----- ----- ----- ---- HPV RESUL TS: HPV mRNA E6/E7 : No HPV mRNA Detec jake NOTE: This high risk HPV mRNA assay detec ts fourt een high- risk HPV types (16, 18, 31, 33, 35, 39, 45, 51, 52, 56, 58, 59, 66, 68) witho ut diffe renti ation . COMME NT: Note: This speci men was revie wed by a Cytot echno logis t and/o r Patho logis t (as indic ated in this repor t) after evalu ation using the Thinp rep Imagi ng Syste m. CLINI LUIS INFOR MATIO N: Menst rual Statu s: LMP (if appli cable ): Clini luis Histo ry/Pr eviou s Pap: Type of Neopl dre (if appli cable ): Signi fican t Clini luis Findi ngs: Other Histo ry: Hormo faisal (if appli cable ): PAP EDUCA DARWIN L NOTE: The Pap Test is a scree lata test with an inher ent false negat rey rate. Liqui d-bas ed sampl ing may decre ase, but will not elimi vincent, false negat rey resul ts. A negat rey resul t does not precl ude the prese nce and/o r devel opmen t of disea se, since the prese nce of abnor mal cells in the sampl e depen ds on the locat ion of the lesio n and sampl ing techn ique. Urmila nued regul ar scree lata is the best metho d of cance r preve ntion . If repor jake cytol ogic findi ng do not corre late with physi luis and/o r histo rical findi ngs, furth er inves tigat ion is recom farhan d, as clini lori george nted. Not Available [facility] (Lab) [address], [place], [address], 03/14/2022 14:51:33 06/01/20 23 06/01/2023 IMAGE GUIDE D PAP AND HPV REGAR DLESS image guided Pap, HPV regardless of Pap result SEE RESULT S BELOW CASE REPOR T: Cytol ogy Gynec ologi luis Repor t Case: [id number] Autho barbara griffin Provi ernesto: Kim Fink MD Colle cted: 06/01 1252 Order ing Locat ion: [place] Patho logy Recei kelly: 06/02 0137 First Scree n: Lani Canales ret, CT Rescr een: Cynthia Garland Speci men: Scree lata Pap - Image d, Cervi x STATE MENT OF ADEQU ACY: Satis facto ry for evalu ation Trans forma tion zone compo nent absen t The absen ce of an endoc ervic al compo nent was confi rmed by an addit ional consuelo mabry. FINAL DIAGN OSIS: Negat rey for Intra epith elial Lesluis carlos calvo or Adali mccall (NIL) . Funga l organ isms morph ologi lori consi stent with Cristina da spp. Elect kerikat garcia bea d by Cynthia Garland on 023 at 3:15 PM ----- ----- ----- ----- ----- ----- ----- ----- ----- ----- ----- ----- ----- ----- ----- ----- ----- ---- HPV RESUL TS: HPV mRNA E6/E7 : No HPV mRNA Detec jake NOTE: This high risk HPV mRNA assay detec ts fourt een high- risk HPV types (16, 18, 31, 33, 35, 39, 45, 51, 52, 56, 58, 59, 66, 68) witho ut diffe renti ation . COMME NT: This speci men was revie wed by a Cytot echno logis t and/o r Patho logis t (as indic ated in this repor t) after evalu ation using the Thinp rep Imagi ng Syste m. CLINI LUIS INFOR MATIO N: Menst rual Statu s: LMP (if appli cable ): Clini luis Histo ry/Pr eviou s Pap: Type of Neopl dre (if appli cable ): Signi fican t Clini luis Findi ngs: Other Histo ry: Hormo faisal (if appli cable ): PAP EDUCA DARWIN L NOTE: The Pap Test is a scree lata test with an inher ent false negat rey rate. Liqui d-bas ed sampl ing may decre ase, but will not elimi vincent, false negat rey resul ts. A negat rey resul t does not precl ude the prese nce and/o r devel opmen t of disea se, since the prese nce of abnor mal cells in the sampl e depen ds on the locat ion of the lesio n and sampl ing techn ique. Urmila nued regul ar scree lata is the best metho d of cance r preve ntion . If repor jake cytol ogic findi ng do not corre late with physi luis and/o r histo rical findi ngs, furth er inves tigat ion is recom farhan d, as clini lori george nted. Not Available [facility] (Lab) [address], [place], [address], 06/02/2023 16:19:46 06/03/20 24 06/03/2024 IMAGE GUIDE D PAP AND HPV REGAR DLESS image guided Pap, HPV regardless of Pap result SEE RESULT S BELOW CASE REPOR T: Cytol ogy Gynec ologi luis Repor t Case: [id number] Autho rin g Provi ernesto: Kim Fink MD Colle cted: 06/03 1048 Order ing Locat ion: [place] Patho [place]y Recei kelly: 06/04 0827 First Scree n: Silvino Asher ed, CT Rescr een: Josh Aguayo, [place] Speci men: Screkacie guido Pap - Image d, Cervi x STATE MENT OF ADEQU ACY: Satis facto ry for evalu ation Trans forma tion zone compo nent absen t The absen ce of an endoc ervic al compo nent was confi rmed by an addit ional scree ner. ----- ----- ----- ----- ----- ----- ----- ----- ----- ----- ----- ----- ----- ----- ----- ----- ----- ---- FINAL DIAGN OSIS: Negat rey for Intra epith elial Lesio n or Adail mccall (NIL) . Elect kenya figueredo d by Josh Aguayo, CT on 2023 at 10:13 AM ----- ----- ----- ----- ----- ----- ----- ----- ----- ----- ----- ----- ----- ----- ----- ----- ----- ---- HPV RESUL TS: HPV mRNA E6/E7 : No HPV mRNA Detec jake NOTE: This high risk HPV mRNA assay detec ts fourt een high- risk HPV types (16, 18, 31, 33, 35, 39, 45, 51, 52, 56, 58, 59, 66, 68) witho ut diffe renti ation . COMME NT: This speci men was revie wed by a Cytot echno logis t and/o r Patho logis t (as indic ated in this repor t) after evalu ation using the Thinp rep Imagi ng Syste m. CLINI LUIS INFOR MATIO N: Menst rual Statu s: LMP (if appli cable ): Clini luis Histo ry/Pr eviou s Pap: Type of Neopl dre (if appli cable ): Signi fican t Clini luis Findi ngs: Other Histo ry: Hormo faisal (if appli cable ): PAP EDUCA DARWIN L NOTE: The Pap Test is a scree lata test with an inher ent false negat rey rate. Liqui d-bas ed sampl ing may decre ase, but will not elimi vincent, false negat rey resul ts. A negat rey resul t does not precl ude the prese nce and/o r devel opmen t of disea se, since the prese nce of abnor mal cells in the sampl e depen ds on the locat ion of the lesio n and sampl ing techn ique. Urmila nued regul ar scree lata is the best metho d of cance r preve ntion . If repor jake cytol ogic findi ng do not corre late with physi luis and/o r histo rical findi ngs, fur er inves tigat ion is recom farhan d, as clini lori george nted. Not Available [facility] (Lab) [address], [place], [address], 06/05/2024 11:17:15 06/24/20 21 06/24/2021 MAMMO , scree lata, bilat eral No observ ation record ed. [facility] [address], [place], [address], 06/24/2021 22:17:34 06/25/20 21 06/24/2021 MAMMO , scree lata, bilat eral No observ ation record ed. [facility] [address], [place], [address], 06/28/2021 15:21:33 07/22/20 21 07/22/2021 MAMMO , diagn ostic , unila teral No observ ation record ed. [facility] [address], [place], [address], 07/26/2021 18:55:54 07/19/20 22 07/19/2022 MAMMO , scree lata, bilat eral No observ ation record ed. [facility] [address], [place], [address], 07/19/2022 20:25:18 08/21/20 23 08/21/2023 MAMMO , scree lata, bilat eral No observ ation record ed. [facility] [address], [place], [address], 08/21/2023 21:05:23 08/23/20 24 08/23/2024 MAMMO , scree lata, bilat eral No observ ation record ed. [facility] [address], [place], [address], 09/18/2024 18:54:52 09/17/20 24 09/17/2024 MAMMO , diagn ostic , unila teral No observ ation record ed. [facility] [address], [place], [address], 09/18/2024 18:54:51 Result Notes None recorded. Procedures Surgical History Date Name Laterality Status Provider Name and Address Organization Details Recorded Time 3 Date of Last Mammogram completed [facility] 06/03/2024 09:37:54 3 Date of Last Pap Smear completed [facility] 06/03/2024 09:37:17 0 Date of Last Colonoscopy completed [facility] 03/07/2022 10:28:48 0 Colonoscopy completed [facility] 12/31/2020 16:55:34 0 completed [facility] 02/02/2021 12:30:40 6 procedure on back completed [facility] 12/31/2020 17:10:52 2 Tubal Ligation completed [facility] 05/25/2020 10:53:01 2 Endometrial Ablation completed [facility] 12/31/2020 17:10:39 1 procedure on upper arm completed [facility] 12/31/2020 17:10:13 9 Colonoscopy completed [facility] 05/25/2020 10:52:33 5 section completed [facility] 05/25/2020 10:52:18 Imaging Results None recorded. Procedure Notes None recorded. Medical Equipment None Reported. Allergies Allergen ID Allergen Name Allergen Category Reaction Reaction Severity Criticality Documentation Date Start Date Code Code System Note Provider Name and Address Organization Details Recorded Time 1136 hydrocodo ne Not available itching Not available Not available 05/25/2020 5489 RxNorm Charlette Hernandez [facility] 0 10:22:24 1137 shellfish derived food,medi cation Not available Not available Not available 05/25/2020 97947 UNK Charlette Hernandez [facility] 0 10:22:29 Medications Name Sig Start Date Stop Date Status Note LastModified by Organization Details LastModified Time amoxicill in 500 mg capsule 06/01 completed Not Available Not Available Not Available bupropion HCl SR 150 mg tablet,12 hr sustained -release TK 1 T PO BID 06/01 completed Not Available Not Available Not Available trazodone 50 mg tablet TAKE 1/2 TABLET BY MOUTH EVERY DAY FOR SLEEP 01/19 completed Not Available Not Available Not Available atorvasta tin 10 mg tablet take 1 tablet by oral route every day active Not Available Not Available No t Available tizanidin e 4 mg tablet TAKE 1 TABLET BY MOUTH THREE TIMES DAILY NEEDED FOR 14 DAYS 01/19 completed Not Available Not Available Not Available fluconazo le 150 mg tablet 06/01 completed Not Available Not Available Not Available benzonata te 200 mg capsule 06/03 completed Not Available Not Available Not Available sumatript an 100 mg tablet TAKE 1 TABLET BY MOUTH 1 ONCE DIRECTED active Not Available Not Available No t Available meloxicam 15 mg tablet TK 1 T PO QD 06/01 completed Not Available Not Available Not Available ibuprofen 200 mg capsule take 1 capsule by oral route every 6 hours as needed 06/01 completed Prescrib ed Elsewher e: Yes L[facility]: [facility] Mehdi odify By: [email or web address] obrien DateTime : 06/13/20 19 03:00:00 PM Not Available Not Available Not Available Paxil 10 mg/5 mL oral suspensio n take 10 millilit er by oral route every day 06/01 completed Prescrib ed Elsewher e: Yes Loca tion: [facility] odify By: [email or web address] Florencete r DateTime : 06/13/20 03:00:00 PM Not Available Not Available Not Available prednison e 20 mg tablet TAKE 2 TABLETS BY MOUTH ONCE DAILY FOR 3 DAYS AND 1 TABLET ONCE DAILY FOR 2 DAYS 06/01 completed Not Available Not Available Not Available rizatript an 10 mg tablet TK 1 T PO ONCE AT FIRST SIGN OF MIGRAINE . MAY REPEAT ONCE AFTER 2 H IF NEEDED. 06/01 completed Not Available Not Available Not Available topiramat e 25 mg tablet TAKE 1 TABLET BY MOUTH TWICE DAILY 06/03 completed Not Available Not Available Not Available phentermi ne 37.5 mg tablet TAKE 1 TABLET BY MOUTH DAILY 06/01 completed Not Available Not Available Not Available naproxen 125 mg/5 mL oral suspensio n take 10 millilit er by oral route every 6 - 8 hours as needed with food 06/01 completed Prescrib ed Elsewher e: Yes Loca tion: [facility] odify By: willis Encounte r DateTime : 06/13/20 03:00:00 PM Not Available Not Available Not Available sulfameth oxazole 800 mg-trimet hoprim 160 mg tablet TAKE 1 TABLET BY MOUTH TWICE DAILY FOR 10 DAYS 06/01 completed Not Available Not Available Not Available hydrocodo ne 10 mg-acetam inophen 325 mg tablet TK 1 T PO Q 4 H PRN P 06/01 completed Not Available Not Available Not Available omeprazol e 40 mg capsule,d elayed release active Not Available Not Available Not Available tramadol 50 mg tablet TAKE 1 TABLET BY MOUTH EVERY 4 TO 6 HOURS NEEDED FOR PAIN 06/01 completed Not Available Not Available Not Available estradiol 1 mg tablet TAKE 1 TABLET BY MOUTH DAILY 2023 active Not Available Not Available Not Avai lable Prilosec 10 mg capsule,d elayed release take 2 capsule by oral route every day before a meal 06/01 completed Prescrib ed Elsewher e: Yes Loca tion: [facility] odify By: anna rolle DateTime : 03/07/20 13 10:30:00 AM Not Available Not Available Not Available lisinopri l 10 mg tablet active Not Available Not Available Not Available methylpre dnisolone 4 mg tablets in a dose pack FOLLOW PACKAGE DIRECTIO NS 06/03 completed Not Available Not Available Not Available albuterol sulfate HFA 90 mcg/actua tion aerosol inhaler INHALE 2 PUFFS INTO THE LUNGS EVERY 6 HOURS NEEDED FOR WHEEZING active Not Available Not Available No t Available Vitamin D2 1,250 mcg (50,000 unit) capsule take 1 capsule by oral route every week 2018 active Prescrib ed Elsewher e: No^Stop Date: [id number] Locatio n: [facility] odify By: [email or web address] antunez DateTime : 07/24/20 01:47:11 PM Not Available Not Available Not Available ondansetr on 4 mg disintegr ating tablet DISSOLVE 1 TABLET ON TONGUE EVERY 6 HOURS NEEDED 06/01 completed Not Available Not Available Not Available phentermi ne 37.5 mg capsule TAKE 1 CAPSULE BY MOUTH DAILY 06/01 completed Not Available Not Available Not Available progester one micronize d 100 mg capsule TAKE 1 CAPSULE BY MOUTH EVERY DAY 2024 active Not Available Not Available Not Avai lable metaxalon e 800 mg tablet TK 1 T PO TID PRN 06/01 completed Not Available Not Available Not Available bupropion HCl (bulk) 100 % powder 06/01 completed Prescrib ed Elsewher e: Yes Loca tion: [facility] odify By: [email or web address] Jose Alberto r DateTime : 06/13/20 03:00:00 PM Not Available Not Available Not Available nitrofura ntoin monohydra te/macroc rystals 100 mg capsule 06/01 completed Not Available Not Available Not Available magnesium active Not Available Not Angela ilable Not Available atorvasta tin 06/01 completed Not Available Not Available Not Available omeprazol e 06/01 completed Not Available Not Available Not Available progester one micronize d 06/01 completed Not Available Not Available Not Available multivita min active Not Available Not Available Not Available meloxicam 7.5 mg/5 mL oral suspensio n take 5 millilit er by oral route every day 06/01 completed Prescrib ed Elsewher e: Yes Loca tion: [facility] odify By: willis Henriquezte r DateTime : 06/13/20 03:00:00 PM Not Available Not Available Not Available Amrix 15 mg capsule,e xtended release take 1 capsule by oral route every day 06/01 completed Prescrib ed Elsewher e: Yes Loca tion: [facility] odify By: willis Encounte r DateTime : 06/13/20 03:00:00 PM Not Available Not Available Not Available Aleve 220 mg capsule 06/01 completed Prescrib ed Elsewher e: Yes Loca tion: [facility] odify By: willis Encounte r DateTime : 06/13/20 03:00:00 PM Not Available Not Available Not Available Lomaira 8 mg tablet 06/03 completed Not Available Not Available Not Available Kapspargo Sprinkle 25 mg capsule,e xtended release 06/01 completed Prescrib ed Elsewher e: Yes Loca tion: [facility] odify By: willis Henriquezte r DateTime : 06/13/20 03:00:00 PM Not Available Not Available Not Available Vitals Date Recorded Body height Body mass index (BMI) Body weight Systolic And Diastolic Provider Name and Address Organization Details Last Updated DateTime 12/31/2020 163.83 cm 35.3 kg/m2 00945.81 g 139/93 mm[Hg] [facility] 12/31/2020 16:55:25 Date Recorded Body height Body mass index (BMI) Body weight Systolic And Diastolic Provider Name and Address Organization Details Last Updated DateTime 03/07/2022 163.83 cm 31.4 kg/m2 44012.18 g 118/79 mm[Hg] [facility] 03/07/2022 10:28:43 Date Recorded Body height Body mass index (BMI) Body weight Systolic And Diastolic Provider Name and Address Organization Details Last Updated DateTime 05/25/2020 163.83 cm 33.1 kg/m2 26538.1 g 133/91 mm[Hg] Charlette [facility] 05/25/2020 10:22:09 Date Recorded Body height Body mass index (BMI) Body weight Systolic And Diastolic Provider Name and Address Organization Details Last Updated DateTime 06/01/2023 163.83 cm 33 kg/m2 27113.51 g 131/86 mm[Hg] Chalrette [facility] 06/01/2023 10:32:02 Date Recorded Body height Body mass index (BMI) Body weight Systolic And Diastolic Provider Name and Address Organization Details Last Updated DateTime 06/03/2024 163.83 cm 31.8 kg/m2 84840.37 g 168/101 mm[Hg] Mayra García [facility] 06/03/2024 09:36:13 Social History Question Answer Notes LastModified by Organizat ion Details LastModified Time Do You Have An Advance Directive? Yes Information n ot available 03/07/2022 Are You Blind Or Do You Have Difficulty Seeing? No Information not available 03/07/2022 What Is Your Level Of Caffeine Consumption? Moderate Information not available 03/07/2022 How Much Tobacco Do You Chew? None Information not available 03/07/2022 In The 14 Days Before Symptom Onset, Have You Had Close Contact With A Laboratory-confirme d COVID-19 While That Case Was Ill? No Information n ot available 03/07/2022 In The 14 Days Before Symptom Onset, Have You Had Close Contact With A Person Who Is Under Investigation For COVID-19 While That Person Was Ill? No Information not available 03/07/2022 Have You Been To An Area Known To Be High Risk For COVID-19? No Information not available 03/07/2022 Are You Deaf Or Do You Have Serious Difficulty Hearing? No Information not available 03/07/2022 What Type Of Diet Are You Following? REGULAR Information n ot available 03/07/2022 What Is The Highest Grade Or Level Of School You Have Completed Or The Highest Degree You Have Received? [id number] Information not available 03/07/2022 Are There Any Guns Present In Your Home? Yes Information not available 03/07/2022 Do You Use Protection During Sex? No Information not available 03/07/2022 Do You Use Your Seat Belt Or Car Seat Routinely? Yes Information not available 03/07/2022 Do You Have Smoke And Carbon Monoxide Detectors In Your Home? Yes Information not available 03/07/2022 How Much Tobacco Do You Smoke? No Information not available 03/07/2022 Do You Use Sunscreen Routinely? Yes Information not available 03/07/2022 Have You Used IV Drugs? No Information not available 03/07/2022 Sex: Unknown Functional Status Question Answer Note LastModified by Organizat ion Details LastModified Time Do you use any illicit or recreational drugs? No Information not available 03/07/2022 What is your level of alcohol consumption? Occasional Information not available 03/07/2022 Are you able to walk? YESWOREST Information not available 03/07/2022 What is your occupation? Retired Information not available 03/07/2022 What is your exercise level? Occasional Information not available 03/07/2022 Mental Status Question Answer Note LastModified by Organization D etails LastModified Time Do you feel stressed (tense, restless, nervous, or anxious, or unable to sleep at night)? [id number] Information not available 03/07/2022 Family History Relationship Description Onset Age of this Age Resolved Age Notes LastModified by Organization Details LastModified Time Maternal Grandfather Carcinoma in situ of lung [email or web address] Not available 09/2022 10:15:01 Mother Carcinoma in situ of lung [email or web address] Not available 09/2022 10:15:01 Mother Hypertensive disorder Not available 2021 10:15:01 Mother Heart disease [email or web address] Not available 2021 10:15:01 Father Hypertensive disorder Not available 2020 16:55:30 Father Hyperlipidem ia [email or web address] Not available 2021 10:15:01 Brother Diabetes mellitus [email or web address] Not available 2021 10:15:01 Medical History Condition Response Acid Reflux (GERD) Y Hypertension Y Gynecological History Statement/Question Response Date of Last Mammogram 08/21/2023 Date of LMP 11/27/2007 STIs/STDs N HPV Vaccine N 01/26/2020 Current Control Method Tubal Ligat ion Age at First Child 29 If Post Menopausal, Age at Menopause 42 Date of Last Colonoscopy 05/18/2020 Sexually Active? Y Menses Monthly N Age of first menstrual cycle 13 Date of Last Pap Smear 06/01/2023 Sexual Problems? N LMP Approximate Obstetrics History GPAL:G 1 P 0 0 0 1 Type Value Living 1 Total 1 Past Encounters Encounter ID Performer Location Encounter Start Date Encounter Closed Date Diagnosis/Indication Diagnosis SNOMED-CT Code Diagnosis ICD10 Code Diagnosis Note [id number] Jean Pierre Fink MD [facility] [address] [address] 05/25/2020 10:11:24 05/25/2020 10:39:25 Menopausal symptom 12059506 N95.1 This patient is a 54-year-ol d female presents for follow-up on hormone replacemen t therapy. She is doing very well. She denies any hot flashes, vaginal dryness, mood changes. She is sleeping very well. She wants to continue with her current routine of 1 mg of estradiol and 100 mg of micronized progestero ne.We will prescribe 1 year of the medication s. She will follow-up for well woman exam. [id number] Jean Pierre Fink MD [facility] [address] [address] 12/31/2020 16:40:01 12/31/2020 17:35:25 Routine gynecologic examination done [id number] Z01.419 This patient is here for her annual exam. A thorough history was taken. A physical exam was performed. Age appropriat e routine health screening was ordered, performed, and discussed. Recommende d testing was ordered. She was asked to follow up in one year. She will be informed of any test results. Mammogram - [ ]done Colonoscop y - [ ]done Bone Density - [ ] na Cholestero l - [ ]done Pap - today [id number] Jean Pierre Fink MD [facility] [address],[facility] [place] [address] 03/07/2022 10:14:45 03/07/2022 10:47:29 Gynecologic examination [id number] Z01.419 This patient is here for her annual exam. A thorough history was taken. A physical exam was performed. Age appropriat e routine health screening was ordered, performed, and discussed. Recommende d testing was ordered. She was asked to follow up in one year. She will be informed of any test results. Mammogram - ordered Colonoscop y - done Bone Density - na Cholestero l - done Pap - today [id number] Jean Pierre Fink MD [facility] [address],[place] [address] 06/01/2023 10:01:02 06/01/2023 11:17:01 Gynecologic examination [id number] Z01.419 Z11.51 This patient is here for her annual exam. A thorough history was taken. A physical exam was performed. Age appropriat e routine health screening was ordered, performed, and discussed. Recommende d testing was ordered. She was asked to follow up in one year. She will be informed of any test results. Mammogram - ordered Colonoscop y - done 05/19 Bone Density - na Cholestero l - done Pap - today [id number] Jean Pierre Fink MD [facility] [address],[facility] [place] [address] 06/03/2024 09:28:12 06/03/2024 10:36:12 Gynecologic examination [id number] Z01.419 Z11.51 This patient is here for her annual exam. A thorough history was taken. A physical exam was performed. Age appropriat e routine health screening was ordered, performed, and discussed. Recommende d testing was ordered. She was asked to follow up in one year. She will be informed of any test results. Mammogram - ordered Colonoscop y - done 05/19 Bone Density - na Cholestero l - done Pap - today Health Concerns Section Related Observation LastModified by Organization Detai ls LastModified Time None Recorded Concern Status LastModified by Organization Details LastModified Time None Recorded Advance Directives Directive Y: Payers Insurance Date Sequence Insurance Name Policy Number Policy Olivares Covered Member ID Olivares Member ID Guarantor Name 06/12/2025 1 MEDICARE-[place] (MEDICARE) Stacia Christy [id number] Stacia Christy 06/12/2025 [facility] (MEDICARE REPLACEMENT/A DVANTAGE - HMO) [id number] Stacia Christy [id number] Stacia Christy 06/12/2025 1 [facility] (MEDICARE REPLACEMENT/A DVANTAGE - HMO) [id number] Stacia Christy [id number] Stacia Christy Notes Date Note Type Note Provider Name and Address Organization Details Recorded Time 05/25/2020 text/html This patient is a 54-year-old female presents for follow-up on hormone replacement therapy. She is doing very well. She denies any hot flashes, vaginal dryness, mood changes. She is sleeping very well. She wants to continue with her current routine of 1 mg of estradiol and 100 mg of micronized progesterone. We will prescribe 1 year of the medications. She will follow-up for well woman exam. Jean Pierre Fink MD [address], [place], [address], [facility] 05/25/2020 10:34:35 12/31/2020 text/html Annual GYNReport ed bypatient.History: no gynecologic complaints Urinary symptoms:No hematuria; No incontinence Vulva:No genital lesion Vagina:Normal vaginal discharge Breast:No breast pain; No breast lump; No nipple discharge Sexual complaints:No sexual complaints; No pain during intercourse; Normal libido Menopausal Symptoms:No menopausal symptoms Psychological symptoms:No depression; No anxiety Preventive measures:Encourage self breast examination; Encourage regular exercise Jean Pierre Fink MD [address], [place], [address], [facility] 12/31/2020 17:32:29 03/07/2022 text/html Annual GYNReport ed bypatient.History: no gynecologic complaints Urinary symptoms:No hematuria; No incontinence Vulva:No genital lesion Vagina:Normal vaginal discharge Breast:No breast pain; No breast lump; No nipple discharge Sexual complaints:No sexual complaints; No pain during intercourse Menopausal Symptoms:No menopausal symptoms; Normal vaginal lubrication Psychological symptoms:No depression; No anxiety Preventive measures:Encourage self breast examination; Encourage regular exercise Jean Pierre Fink MD [address], [place], [address], [facility] 03/07/2022 10:42:01 06/01/2023 text/html Annual GYNReport ed bypatient.History: no gynecologic complaints Urinary symptoms:No hematuria; No incontinence Vulva:No genital lesion Vagina:Normal vaginal discharge Breast:No breast pain; No breast lump Sexual complaints:No sexual complaints; No pain during intercourse Menopausal Symptoms:No menopausal symptoms; Normal vaginal lubrication Psychological symptoms:No depression; No anxiety Preventive measures:Encourage self breast examination; Encourage regular exercise Jean Pierre Fink MD [address], [place], [address], [facility] 06/01/2023 11:10:26 06/03/2024 text/html Annual GYNReport ed bypatient.History: no gynecologic complaints Menstrual cycle:amenorrhea Urinary symptoms:No hematuria Vulva:No genital lesion Vagina:Normal vaginal discharge Breast:No breast pain; No breast lump Sexual complaints:No sexual complaints; No pain during intercourse Menopausal Symptoms:No menopausal symptoms Psychological symptoms:No depression; No anxiety Preventive measures:Encourage self breast examination; Encourage regular exercise Jean Pierre Fink MD [address], [place], [address], [facility] 06/03/2024 10:18:40 OBGyn Episode Ob Episode Information Episode Created Date Number of Fetuses Patient Bloodtype Patient rh Status Prepregnancy Weight lbs Domestic Partner Domestic Partner Phone Father Name Oral Surgery Assistant Status 12/31/19 21 1 CLOSED Fetus Data First Name Last Name Admitted to NICU Weight (g) Sex Living Outcome Pediatric Complications Fetus ID Race Codes Race Delivery Type [id number] Primary Hudson Calculation Initial Hudson Date Initial Exam Date Initial Exam Provider Initial Ultrasound Date Last Menstrual Period Date Ultra Sound Weeks Gestation 0 Eighteen To Twenty Week Hudson Update Ultra Sound Date Fundal Height At Umbil Quickening Date Ultra Sound Latest Weeks Gestation Final Hudson Confirmed By Final Hudson Confirmed Date Final Hudson Date Ultra Sound Latest Days Gestation 0 0 Menstrual History Last Menstrual Date Menses Monthly On Bcp Conception Prior Menses Frequency Hcg Plus Date Menarche Onset Age Delivery Information Delivery Date Delivery Type Labor Anesthesia Weeks Gestation Incision Type Labor Labor Length Hrs Delivered By Post Complications Tubal Sterilization Discharge Date Comments Discharge Information Feeding Method Contraceptive Method Maternal HG B and HCT Levels
--- OUTSIDE RECORDS SUMMARY | 2025-06-13 08:22 | XMS_ITS | Patient Health Record ---
Author Organization [facility] [place] ([address]) Address [address] [place] [address] Care Team Providers Care Stenocaptioner Name Role Phone Yoli Melendez Primary Care Provider Dr. Jason Gonzalez Unavailable [phone] Allergies Allergen (clinical drug ingredient) Drug/Non Drug Allergy documented on EMR Reaction Allergy Type Onset Date Status hydrocodone HYDROcodone Unknown Drug Allergy Act rey Reason For Referral No Information Medications Medication SIG (Take, Route, Frequency, Duration) Notes Start Date End Date Status PROGESTERONE 100 mg 2 cap(s) orally once a day (at bedtime); Duration: 12 day(s) Active MAGNESIUM AddWithoutSig 06/18/2019 Active ESTRADIOL 1 mg 1 tab(s) orally once a day; Duration: 30 day(s) Unknown AMOXICILLIN 500 mg 1 cap(s) orally 3 times a day; Duration: 10 day(s) Not-Taking SUMATRIPTAN 100 mg 1 tab(s) orally once; Duration: 30 days Active MELOXICAM 15 mg 1 tab(s) orally once a day; Duration: 30 day(s) Active ATORVASTATIN 10 mg 1 tab(s) orally once a day; Duration: 30 day(s) Active Estradiol 1 MG 1 tab(s) orally once a day; Duration: 30 day(s) Unknown Amoxicillin 500 MG 1 cap(s) orally 3 times a day; Duration: 10 day(s) Not-Taking Magnesium ADDWITHOUTSIG *Please review and pick correct strength-formulat ion from Medispan options. If intended option is not shown, discontinue and re-order from Quick Search* 06/18/2019 Active Progesterone 100 MG 2 cap(s) orally once a day (at bedtime); Duration: 12 day(s) Active SUMAtriptan Succinate 100 MG 1 tab(s) orally once; Duration: 30 days Active Meloxicam 15 MG 1 tab(s) orally once a day; Duration: 30 day(s) Active Atorvastatin Calcium 10 MG 1 tab(s) orally once a day; Duration: 30 day(s) Active Problems Problem Type SNOMED Code ICD Code Onset Dates Problem Status W/U Status Risk Notes Problem Chronic migraine without aura, non-intractable (463365953381558 ) Chronic migraine without aura, not intractable, without status migrainosus (G43.709) Active confirmed Problem Allergic rhinitis, unspecified (J30.9) Active confirmed Problem Cervicalgia (96678493) Cervicalgia (M54.2) Active confirmed Plan Of Treatment No Information Insurance Providers Payer Name Payer Address Payer Phone Subscriber Number Group Number Insured Name Patient Relationship to Insured Coverage Start Date Coverage End Date [employer] [address] [address] [place] [address] [id number] Stacia Christy Self - patient is the insured Medical (General) History Medical History History ICD Code Allergies, seasonal: Yes Allergy, food: Yes Arthritis: Yes Back pain: Yes Degenerative Disc Disease: Yes Elevated Blood Pressure: Yes Esophageal reflux: Yes Food allergy: Yes Kidney stones: Yes Neck pain: Yes Obesity: Yes Panic attacks: Yes Rheumatoid Arthritis-Adult: Yes Seasonal allergies: Yes Tobacco Use: Yes Surgical History Surgery Date(Month/Year) C4-C6 spinal fusion S/p ORIF L humerus S/p L carpal tunnel release S/p lumbar spinal fusion
--- OUTSIDE RECORDS SUMMARY | 2025-06-13 08:22 | XMS_ITS | Continuity of Care Document ---
Author Organization [facility] Address [address] [place] [address] Phone Care Team Providers Care Photographer Assistant Name Role Phone Ariel BERMEO MD, Noel Unavailable Unavailab le Procedures Procedure Date Medical Records Charge Memory Loop, Bench Shear Operator Memory Loop, Interp And Report 05 EM-Office Visit Level 3 EKG With Interp And Report EM-Admit Level 2 Left Heart Cath Injection, LV Angios During Cath 2004 Injection, Coronary Angio During Cath Atrial/Ventr Imaging, Angiogram S&I Vessel Imaging, Angiogram, S&I 05 Injection For Aortography During Cath EM-IN PT Hosp DC 30 Min Or Less 005 Advance Directives Directive Yes / No Effective Date File Name No Information Encounters Encounter Description Practice Location Reason(s) For Visit Diagnoses Date Provider Providers Copied on Encounter [facility], [address], [place], [address], [place] tel:[phone] DX [place] CV No Information 5 Ariel Cohen. [facility] , [address], [place], [place], [id number], [place]. tel:[phone] Referring Provider: Noel George MD [facility] [address], [place], [address]. tel:[phone] [facility], [address], [place], [address], [place] tel:[phone] DX [place] CVM No Information 5 Ariel Cohen. [facility], [address], [place], [place], [id number], [place]. tel:[phone] Referring Provider: Noel Lu, [facility] [address], [place], [address]. tel:[phone] EM-Office Visit Level 3 [facility], [address], [place], [address], [place] tel:[phone] [place] [facility] No Information Ariel Cohen. [facility], [address], [place], [place], [address], [place]. tel:[phone] Referring Provider: Noel Lu, [facility] [address], [place], [address]. tel:[phone] EM-Admit Level 2 [facility], [address], [place], [address], [place] tel:[phone] [place] CVM No Information 5 Ariel Cohen. [facility], [address], [place], [place], [id number], [place]. tel:[phone] Referring Provider: Noel Lu, [facility] [address], [place], [address]. tel:[phone] Family History Family Member Type Diagnosis Age At Onset No Information Payers Payer name Insurance type Covered constitution party ID Authoriza tilori(s) No Information Social History Type Description Quantity Date Captured Comments Sex Female Smoking Status No Information Chief Complaint And Reason For Visit No Information Reason For Referral Reason For Referral No Information History Of Present Illness Encounter Date Complaint History Of Prese nt Illness No Information Functional Status Date Functional Assessmen t No Information Instructions Date Instruction Additional Infor mation No Information Assessments Type Assessment Date No Information Patient Care Teams Name Effective Dates (start - stop) Status Members No Information
[2025-06-13 08:58] LABS: Add Urine Microscopic? NO; Appearance Urine Clear (Clear); Glucose Urine UA Negative (Negative); Leukocyte Esterase Ur Negative LEU/UL (Negative); Nitrate Urine Negative (Negative); Specific Grav Ur 1.013 (1.001-1.035)
[2025-06-13 09:08] LABS: Hematocrit 42.3 % (37.0-47.0); Hemoglobin 14.4 g/dL (12.0-15.0); Immature Granulocyte Percent A 0.6 % (0-0.5); Lymphocytes Absolute Auto 1.83 K/mm3 (0.9-3.2); Mean Corpuscular HGB Conc 34.0 g/dl (32-36); Mean Corpuscular Hemoglobin 29.8 pg (26-34); Mean Corpuscular Volume 87.6 fl (80-100); Nucleated Red Blood Cells Absolute Auto 0.000 K/mm3 (0.0-0.012); Nucleated Red Blood Cells Perc 0.0 % (0.0-0.2); Platelet Count Result 283 k/mm3 (150-375); Red Blood Count 4.83 M/mm3 (4.2-5.4); White Blood Count 7.1 K/mm3 (4.5-10.0)
[2025-06-13 09:37] LABS: Alanine Aminotransferase 28 U/L (6-35); Albumin Level 4.2 g/dL (3.5-5.1); Alkaline Phosphatase 81 U/L (38-126); Anion Gap 9 mmol/L (4-12); Aspartate Amino Transferase 30 U/L (14-36); Bilirubin,Total 0.4 mg/dL (0.2-1.3); Blood Urea Nitrogen 13 mg/dL (7-17); Calcium 9.3 mg/dL (8.4-10.2); Carbon Dioxide 23 mmol/L (22-30); Chloride 109 mmol/L (98-107); Cholesterol 190 mg/dL (0-200); Estimated Glomerular Filt Rate > 60; Glucose 94 mg/dL (65-110); HDL Direct 45 mg/dL; Potassium 3.6 mmol/L (3.4-5.0); Sodium 141 mmol/L (137-145); Total Protein 7.0 g/dL (6.3-8.2); Triglycerides 277 mg/dL (<150); Uric Acid 4.1 mg/dL (2.5-7.5)
[2025-06-13 10:07] LABS: Thyroid Stimulating Hormone Reflex 1.900 uIU/mL (0.465-4.68)
== END 2025-06-13 08:14 | disposition home or self-care (01) ==
LOC: ANHLAB 08:19
PROVIDERS: PCP Registered Nurse; Visit Provider Registered Nurse
DX: E78.2 Mixed hyperlipidemia (principal); K21.9 Gastro-esophageal reflux disease without esophagitis; I10 Essential (primary) hypertension; E55.9 Vitamin D deficiency, unspecified
CPT/HCPCS: 36415; 80053; 80061; 81003; 82306; 84443; 84550; 85025; 86803